=== PATIENT | female | born 1965 | race Caucasian/White ===

== ENCOUNTER 2017-12-14 12:26 | Emergency (ER) | payer OTHER ==
[2017-12-14 12:58] VITALS: BP 158/80
--- NOTE | 2017-12-14 14:10 | UC ---
UC General HPI - HPI Summary HPI Summary: painful spot on back of head on L x 1 week with worsening. pt has noted something "wet" there with itching. no fever. deny hx mrsa. hx dm but BS unchanged with this. - History of Current Complaint Chief Complaint: UCSkin Stated Complaint: SKIN COMPLAINT HEAD Time Seen by Provider: 12/14/17 13:34 Hx Obtained From: Patient Onset/Duration: Gradual Onset Timing: Constant Pain Intensity: 8 Aggravating: touch, pressure Associated Signs & Symptoms: Negative: Fever - Allergy/Home Medications Allergies/Adverse Reactions: Allergies Allergy/AdvReac Type Severity Reaction Status Date / Time erythromycin base Allergy Vomiting Verified 12/14/17 12:51 Penicillins Allergy Vomiting Verified 12/14/17 12:51 tetracycline Allergy Vomiting Verified 12/14/17 12:51 Home Medications: Home Medications Naproxen Sodium [Naproxen Sodium 500 MG TAB] 500 mg PO BID PRN 12/14/17 [ History Confirmed 12/14/17] PMH/Surg Hx/FS Hx/Imm Hx - Additional Past Medical History Additional PMH: prolong QT, psoriasis Endocrine History: Diabetes, Thyroid Disease Cardiovascular History: Hypertension - Surgical History Surgical History: Yes Surgery Procedure, Year, and Place: . [facility] - Family History Known Family History: Positive: Hypertension, Diabetes - Social History Occupation: Retired Alcohol Use: None Substance Use Type: None Smoking Status (MU): Never Smoked Tobacco - Immunization History Vaccination Up to Date: Yes Review of Systems Constitutional: Negative Skin: Rash - psoriasis Eyes: Negative ENT: Negative Respiratory: Negative Cardiovascular: Negative Gastrointestinal: Negative Genitourinary: Negative Motor: Negative Neurovascular: Negative Musculoskeletal: Negative Neurological: Negative Psychological: Negative All Other Systems Reviewed And Are Negative: Yes Physical Exam Triage Information Reviewed: Yes Appearance: Well-Appearing Vital Signs: Initial Vital Signs Temp 98.4 F 12/14/17 12:53 Pulse 103 12/14/17 12:53 Resp 20 12/14/17 12:53 BP 158/80 12/14/17 12:53 Pulse Ox 97 12/14/17 12:53 Vital Signs Reviewed: Yes Eyes: Positive: Conjunctiva Clear ENT: Positive: Normal ENT inspection, Other - no auricular adenopathy. Neck: Positive: Supple, Nontender, No Lymphadenopathy Respiratory: Positive: Lungs clear, Normal breath sounds Cardiovascular: Positive: RRR, No Murmur Abdomen Description: Positive: Nontender, No Organomegaly, Soft Bowel Sounds: Positive: Present Musculoskeletal: Positive: ROM Intact Neurological: Positive: Alert Skin Exam: Normal Skin: Positive: rashes - Scattered plaques c/w psoriasis., Other - L occipute with are of matting with dry - yellow crust. Swelling with erythema under crusting is seen. Site very tender. Course/Dx - Course Course Of Treatment: Crusting washed off by myself with soap and warm water which revealed a draining abscess. Gentle pressure expressed puss and culture obtained. Gentle pressure until all puss drained. Site rewashed with soap and water. Swelling and tenderness decreased after. - Differential Dx - Multi-Symptom Provider Diagnoses: Abscess L occipital scalp. Discharge - Sign-Out/Discharge Documenting (check all that apply): Patient Departure All imaging exams completed and their final reports reviewed: No Studies - Discharge Plan Condition: Stable Disposition: HOME Prescriptions: Cephalexin CAP* [Keflex CAP*] 500 mg PO TID #30 cap Patient Education Materials: Abscess (ED), Warm Compress or Soak (ED) Referrals: Emilee Willoughby MD [Primary Care Provider] - 2 Days - Billing Disposition and Condition Condition: STABLE Disposition: Home - Attestation Statements Provider Attestation: Per institutional requirements, I have reviewed the chart, however, I was not consulted specifically or made aware of this patient by the midlevel provider. I did not personally evaluate, interact with , or disposition this patient.
--- NOTE | 2017-12-16 08:21 | ED ---
Progress - Progress Note Progress Note: Left scalp abscess Wound culture preliminary report with staph aureus positive, MRSA negative Patient on Keflex Await final sensitivity report No change Course/Dx - Course Course Of Treatment: Crusting washed off by myself with soap and warm water which revealed a draining abscess. Gentle pressure expressed puss and culture obtained. Gentle pressure until all puss drained. Site rewashed with soap and water. Swelling and tenderness decreased after. Discharge - Sign-Out/Discharge Documenting (check all that apply): Post-Discharge Follow Up All imaging exams completed and their final reports reviewed: No Studies - Discharge Plan Condition: Stable Disposition: HOME Prescriptions: Cephalexin CAP* [Keflex CAP*] 500 mg PO TID #30 cap Patient Education Materials: Abscess (ED), Warm Compress or Soak (ED) Referrals: Emilee Willoughby MD [Primary Care Provider] - 2 Days - Billing Disposition and Condition Condition: STABLE Disposition: Home
== END 2017-12-14 14:18 | disposition home or self-care (01) ==
LOC: UCCORT 12:26
DX: L02.811 Cutaneous abscess of head [any part, except face] (principal); E11.9 Type 2 diabetes mellitus without complications; I10 Essential (primary) hypertension; L40.9 Psoriasis, unspecified; I45.81 Long QT syndrome; Z88.0 Allergy status to penicillin; Z88.1 Allergy status to other antibiotic agents
CPT/HCPCS: 87070; 87077; 87186; 87205; 87640; 87641; 99212; G0463